=== PATIENT | female | born 1955 | race Caucasian/White ===

== ENCOUNTER 2018-04-25 05:52 | Day surgery (SDC) | payer BC, SELFPAY ==
[2018-04-25] VITALS (7 sets, daily range): BP systolic 93–114; BP diastolic 40–59; PULSE 58–67; RESP 14–16; TEMP 37–37.3; O2SAT 96–100; BMI 22.8
--- NOTE | 2018-04-25 | EMB_PTH ---
PATIENT: MATT THOMAS LOC: [facility] [place] U#:[id number] AGE/SX: 62/F ROOM: RE04/25/[address]: Dr. Humaira Ashley DO : 1955 BED: DIS: 04/25/2018 SPEC #: [id number] RECD: 04/25/18 13:32 STATUS: ОЛЬГА CARVALHO #: [id number] ALDO: 04/25/18 00:[address]: Humaira Ashley DEPT: SURGICAL PATHOLOGY RECD BY: Mike Narvaez ENTERED: 04/25/18 13:32 SP TYPE: ENDOM BX/C OT DR: Out of Town Doctor Tissues: Endometrium, NOS Procedures: Surgery Specimen Level IV HEADER OPERATION: Hysteroscopy, D & C, Symphion PRE-OP DIAGNOSIS: Fluid in endometrial cavity and postmenopausal bleeding TISSUE SUBMITTED: Endometrial curettings MICROSCOPIC DIAGNOSIS Endometrial curettings: Scant strips of benign endometrial epithelium and superficial fragment of benign endometrial tissue. Benign ecto- and endocervical epithelium, blood and mucous. CIRO:[place] 04/26/18 COMMENT The specimen predominantly consists of ecto- and endocervical epithelium, blood and mucous. Clinical correlation and appropriate follow up are necessary. MICROSCOPIC DESCRIPTION Slides are reviewed. GROSS DESCRIPTION Received in fixative is one container labeled with the patient's name and designated endometrial curettings. The specimen consists of multiple irregular fragments of ramires mucoid tissue that in aggregate measure 2.5 x 1 x 0.1 cm. The specimen is totally submitted in one cassette. / CIRO:[place] 04/25/18 TC:4 CPT: 95709
[2018-04-25 06:32] LABS: Hematocrit 40.4 % (37-47); Hemoglobin 13.2 g/dl (12.0-15.0); Mean Corp Hgb Conc 32.7 g/gl (32-36); Mean Corpuscular Hgb 31.3 pg (27.0-32.0); Mean Corpuscular Volume 95.7 fL (81-99); Mean Platelet Vol. 10.6 fl (6.2-12.0); Platelet Count 247 K/mm3 (150-450); RBC Distribution Width CV 13.1 % (11.6-14.6); RBC Distribution Width SD 44.4 fl (35.1-43.9); Red Blood Count 4.22 M/mm3 (4.2-5.4); Scan Indicated on CBC? Y/N NO; White Blood Count 6.2 K/mm3 (4.4-11.0)
[2018-04-25] MEDS: Lubricating Jelly 60 GM Tube 30 GM TOPICAL (08:00)
--- NOTE | 2018-04-25 09:18 | PCM.DC.D&C ---
Discharge Diet: No Restrictions Discharge Activity: Return to Normal Activity, May Shower Return to work on:: 04/29/18 May resume sexual activity in: 2 weeks Weight Bearing Status: Weight bearing as tolerated Lifting Restrictions: None Call your doctor if you observe: Fever of 101 or Higher, Using more than one pad per hour, Shortness of breath, Chest pain, Calf discomfort, Uncontrolled pain Allergies/Adverse Reactions: Allergies No Known Allergies Allergy (Verified 04/23/18 14:53) Medications to take at Discharge Biotin 5 mg PO DAILY 04/23/18 Bupropion HCl [Bupropion HCl Sr] 100 mg PO DAILY 04/23/18 Calcium Carbonate/Vitamin D3 [Calcium 500-Vit D3 200 Tablet] 1 each PO DAILY 04/23/18 Magnesium Oxide [Magnesium] 500 mg PO DAILY 04/23/18 Multivitamin [Multiple Vitamins] 1 each PO DAILY 04/23/18 Venlafaxine XR [Effexor Xr] 75 mg PO QHS 04/23/18 traZODone [Desyrel] 50 mg PO QHS 04/23/18 Primary Care Physician: Alejandro Jimenez,Out of [Primary Care Provider] - Test Results: Test results from this visit will be discussed in further detail at your follow-up appointment, if applicable. Please Follow Up With: Humaira Ashley DO When: 1-2 weeks for post op appointment
--- NOTE | 2018-04-25 09:25 | DCINST_ITS ---
Discharge Diet: No Restrictions Discharge Activity: Return to Normal Activity, May Shower Return to work on:: 04/29/18 May resume sexual activity in: 2 weeks Weight Bearing Status: Weight bearing as tolerated Lifting Restrictions: None Call your doctor if you observe: Fever of 101 or Higher, Using more than one pad per hour, Shortness of breath, Chest pain, Calf discomfort, Uncontrolled pain Allergies/Adverse Reactions: Allergies No Known Allergies Allergy (Verified 04/23/18 14:53) Medications to take at Discharge Biotin 5 mg PO DAILY 04/23/18 Bupropion HCl [Bupropion HCl Sr] 100 mg PO DAILY 04/23/18 Calcium Carbonate/Vitamin D3 [Calcium 500-Vit D3 200 Tablet] 1 each PO DAILY 04/23/18 Magnesium Oxide [Magnesium] 500 mg PO DAILY 04/23/18 Multivitamin [Multiple Vitamins] 1 each PO DAILY 04/23/18 Venlafaxine XR [Effexor Xr] 75 mg PO QHS 04/23/18 traZODone [Desyrel] 50 mg PO QHS 04/23/18 Primary Care Physician: Alejandro Jimenez,Out of [Primary Care Provider] - Test Results: Test results from this visit will be discussed in further detail at your follow- up appointment, if applicable. Please Follow Up With: Humaira Ashley DO When: 1-2 weeks for post op appointment
--- NOTE | 2018-04-25 09:45 | PCM.OPRPT ---
Problem List (1) Post-menopausal bleeding Status: Acute Report of Operation Date of Procedure: 04/25/18 Pre-Operative Diagnosis: Post menopausal bleeding Post-Operative Diagnosis: As above Surgery/Procedure Performed:: Hysteroscopy, D&C Description of Surgical Findings:: Good descent of uterus and cervix. Atrophic appearing endometrium. No polyps or fibroids noted. Bilateral tubal ostia visualized Type of Anesthesia:: MAC Specimen's removed: Endometrial curettings Estimated Blood Loss (mL): < 50 cc Description of Procedure: Indications: 62 y/o female with hx of vaginal prolapse and pessary use. Had new brown spotting and post menopausal vaginal bleeding. Had an endocervical polyp removed in the office. Pelvic US showed 2 uterine fibroids (measuring 2cm and 1cm), and an endometrial echo complex measuring 4.2mm with fluid in the endometrial cavity. A sonohysterogram followed by an in office EMB was discussed with the pt. A hysteroscopy, D&C was also discussed. Pt preferred a hysteroscopy, D&C. Risks, benefits, and alternatives were fully discussed and consent obtained. Procedure: Patient was taken to the operating room where she was prepped and draped in the usual sterile fashion in dorsal lithotomy position using yellow fin stirrups. MAC anesthesia was adequate. The cervix was exposed with a weighted vaginal speculum and the anterior lip of the cervix was grasped with a single-tooth tenaculum. 10cc of 1% lidocaine was used to perform a paracervical block. The uterus was sounded to a depth of 6 cm. There was good descent of the uterus and cervix. The endocervical canal was then progressively dilated with Ramesh dilators to a #22. Significant cervical stenosis was noted. The hysteroscope was then introduced into the uterine cavity using sterile saline solution as a distending media. The endometrial cavity was distended and fully visualized. Atrophic endometrium was noted. A normal uterine cavity was noted. Bilateral tubal ostia were visualized. No fibroids or polyps were noted. The hysteroscope was then removed. A sharp curettage was performed for scant tissue. The tissue was sent to pathology for review. The patient tolerated the procedure well. Patient was taken to the recovery room in stable condition. Instrument counts were correct. - Admit VTE Documentation VTE Mechan Device Prophylaxis: SCD's
== END 2018-04-25 09:59 | disposition home or self-care (01) ==
LOC: SDC 05:54 → AC 05:55
PROVIDERS: Referring Provider Obstetrics & Gynecology; Visit Provider Obstetrics & Gynecology
PROC: (CPT 58558; principal; 2018-04-25 07:15)
DX: N95.0 Postmenopausal bleeding (principal); N85.9 Noninflammatory disorder of uterus, unspecified; F32.9 Major depressive disorder, single episode, unspecified; Z79.899 Other long term (current) drug therapy; Z87.891 Personal history of nicotine dependence
CPT/HCPCS: 58558; 36415; 85027; 86850; 86900; 88305; J7120